=== PATIENT | female | born 1970 | race Caucasian/White ===

== ENCOUNTER 2024-05-24 11:44 | Outpatient (CLI) | payer MEDICAID, SELFPAY ==
[2024-05-24 10:28] LABS: Abs Immature Grans 0.01 10^3/uL (0.0-0.06); Absolute Basophil Count 0.03 10^3/uL (0.0-0.2); Absolute Eosinophil Count 0.04 10^3/uL (0.0-0.7); Absolute Lymphocyte Count 1.66 10^3/uL (1.2-3.4); Absolute Monocyte Count 0.34 10^3/uL (0.1-0.8); Absolute Neutrophil Count 3.38 10^3/uL (1.2-6.7); Basophils % 0.5 %; Eosinophils % 0.7 %; HCT 41.6 % (36.0-46.0); HGB 13.7 g/dL (11.2-15.7); Immature Grans % 0.2 %; Lymphocytes % 30.4 %; MCH 30.9 pg (27.0-33.0); MCHC 32.9 % (32.0-36.0); MCV 94 fL (80-95); MPV 9.9 fL (8.0-11.0); Monocytes % 6.2 %; Platelet Count 291 10^3/uL (130-400); RBC 4.43 10^6/uL (3.93-5.22); RDW 11.7 % (11.7-14.6); RDW-SD 40.7 fL; WBC 5.46 10^3/uL (4.4-10.8)
[2024-05-24 14:49] LABS: Hemoglobin A1C 5.1 % (<5.7)
[2024-05-24 15:10] LABS: ALT 29 U/L (14-59); AST 20 U/L (15-37); Albumin 4.4 g/dL (3.4-5.0); Alkaline Phosphatase 97 U/L (46-116); Anion Gap 8.8 mmol/L (3-11); BUN 9 mg/dL (7-18); Bilirubin, Total 0.52 mg/dL (0.2-1.0); CO2 27.2 mmol/L (21.0-32.0); CREATININE 0.7 mg/dL (0.55-1.02); Chloride 105 mmol/L (98-107); Estimated GFR 103.35 (mL/min/1.73m2); Glucose 91 mg/dL (74-106); Sodium 141 mmol/L (136-145); TSH 1.76 uIU/mL (0.36-3.74); Total Protein 7.4 g/dL (6.4-8.2)
[2024-05-24 15:11] LABS: C-Reactive Protein < 0.50 mg/dL (<or=0.5)
== END 2024-05-24 11:45 | disposition home or self-care (01) ==
LOC: LBO 11:50
PROVIDERS: Visit Provider Emergency Medicine
DX: R63.4 Abnormal weight loss (principal); E03.9 Hypothyroidism, unspecified; E11.9 Type 2 diabetes mellitus without complications
CPT/HCPCS: 36415; 80053; 83036; 84443; 85025; 86140

== ENCOUNTER 2024-06-08 08:49 | Day surgery (SDC) | payer MEDICAID, SELFPAY ==
--- NOTE | 2024-06-07 15:38 | W.PM.DSUDISC ---
Date of service: 06/08/24 Discharge Plan Disposition Patient Disposition: Home Condition: Good Discharge Details Reason For Visit: screening colonoscopy Attending Provider: Sathish Underwood Home Meds and New Rx's Prescriptions: Continued duloxetine 60 mg capsule,delayed release(DR/EC) 60 mg PO DAILY Qty: 90 3RF eletriptan [Relpax] 40 mg tablet 40 mg PO ONCE Qty: 30 1RF Discharge Instructions Instructions: Hemorrhoids Additional Instructions: Xiomara was very nice meeting you today, and I hope you are comfortable through the procedure. As we discussed before hand, you do have signs of internal hemorrhoids. This is congruent with what you described before the procedure. My basic approach to hemorrhoid management involves maintaining a diet that is rich in fiber to help promote soft bulky stools, which are easier for the rectum to manage, staying well-hydrated, and avoiding constipation. [id number] approaches can also be used to manage symptoms if they arise. Finally, there are operations to deal with internal and external hernias, but as they are relatively painful, I typically recommend that patients exhaust her nonoperative approaches before moving forward with any type of surgery. Otherwise, your colonoscopy was normal. I saw no signs of tumors or polyps. It is possible that the Cologuard test was triggered by hemorrhoid disease, but there is also a 13% false positive rate for Cologuard in general. That is, for every 100 patients with a positive test, 13 of them will have nothing wrong. In order to be safe, and with your family history, I recommend a 5-year interval for your next screening colonoscopy. 1. If tolerated, consume a soft, low fiber diet for 1-2 days. 2. Do not drive, drink alcohol, operate machinery, make critical decisions, or do activities that require coordination or balance for 24 hours. 3. Because air was put into your colon during the procedure, expelling air from your rectum (passing gas or farting) is normal. 4. You may not have a bowel movement for 1-3 days because of the colonoscopy prep. This is normal. 5. Go directly to the emergency room if you notice any of the following: Develop chills (warm to touch), or if you have a thermometer and your temperature is above 101 Difficulty breathing or difficultly swallowing Persistent vomiting Severe abdominal pain, other than gas cramps Severe chest pain Black, tarry stools Any bleeding ? exceeding one tablespoon 6. Call your physician if the site where your intravenous was started becomes red, swollen, painful, and warm to touch. 7. Your physician has reviewed your pre-procedure medications. Please continue to take those medications as previously ordered. You will be given specific information/education regarding any changes to your medications before leaving. Stand Alone Forms: Anesthesia Discharge InstOneil Chavez (DSU) Activity:: Activity as Tolerated Diet:: As Tolerated Discharge Orders Discharge Orders: Discharge Order (Routine); Ordered 06/07/24 Ordered By: Sathish Underwood DS: Diagnosis Discharge Diagnosis (1) Encounter for screening colonoscopy: Status: Acute Asessment and Plan: Negative screening colonoscopy; based on family history recommend 5-year interval for the next colonoscopy
--- NOTE | 2024-06-07 15:39 | W.COLOREPORT ---
Date of service: 06/08/24 Time of Service: 11:59 Colonoscopy Report Date of procedure: 06/08/24 Pre-op diagnosis general: screening colonoscopy Post-op diagnosis procedure note: other (Internal hemorrhoids; otherwise negative screening colonoscopy) Procedure: colonoscopy Surgeon: Sathish Underwood Anesthesia Type: General:No Airway Estimated blood loss (mL): 0 Pathology: none sent Complications: None Disposition: same day Indications: Xiomara is a 54 year old woman with a positive cologuard test who needs a follow up screening colonoscopy Prep: Miralax/Dulcolax Procedure Start Time: :22 Procedure End Time: 11:48 Retraction Time: 11 Findings: Internal hemorrhoids Procedure Description: After the induction of anesthesia, and with the patient in left lateral decubitus position, I began by performing an external anorectal exam.? Perineum and skin were normal, as was the anal verge.? There was no evidence of external hemorrhoids.? Next, I performed a digital rectal exam.? I did not appreciate any abnormal findings.? Next, I advanced a colonoscope into the rectal vault.? I performed retroflexion.? There are internal hemorrhoids.? Using insufflation, I then advanced the colonoscope beyond the rectal folds and into the sigmoid colon before advancing towards the cecum.? The quality of the prep was excellent.? The scope was noted to be in the cecum by identification of the ileocecal valve and appendiceal orifice.? I then began withdrawing the colonoscope using repeated irrigation as necessary for full evaluation of the colonic mucosa. ?Once the scope was withdrawn to the level of the rectum, great care was taken to examine portions of the rectal folds.? Finally, the scope was withdrawn and the patient was brought to the same-day surgery recovery unit as the anesthetic wore off. ?I saw no signs of tumors, polyps, or any other concerning pathology. The findings and instructions were shared with the patient prior to discharge. In light of the Cologuard result, with some family history of colorectal cancer, I do recommend a 5-year interval for the next screening. Juliaetta Bowel Prep Juliaetta Bowel Prep Right Colon: 3 Left Colon: 3 Transverse Colon: 3 Total Score: 9
[2024-06-08 09:27] VITALS: BP 119/82; PULSE 87; RESP 16; TEMP 36.7; O2SAT 98
--- NOTE | 2024-06-08 10:15 | W.ANESPRE ---
General Info Date of Service Date Performed: 06/08/24 Height: 5 ft 7 in Weight: 65.1 kg Body Mass Index (BMI): 22.4 Surgical Procedure: Operation Date: 06/08/24 10:35 Proposed Procedure Side Surgeon kayley Underwood MD Meds Allergies and Home Medications Allergies Allergy/AdvReac Type Severity Reaction Status Date / Time adhesive AdvReac Severe blisters Verified 06/08/24 09:18 Home Medication ?Medication ?Instructions ?Recorded duloxetine 60 mg capsule,delayed 60 mg PO DAILY #90 caps 05/24/24 release eletriptan 40 mg tablet (Relpax) 40 mg PO ONCE #30 tabs 05/24/24 Current Visit Medications: Current Medications Generic Name Dose Route Start Last Admin Trade Name Freq PRN Reason Stop Dose Admin Ringer's Solution 1,000 mls @ 80 mls/hr 06/08/24 06:00 IV 06/08/24 23:59 INFUSION RICCARDO IV Miscellaneous Supplies 1 each 06/08/24 06:00 Iv Access IV 06/08/24 23:59 DIRECTED RICCARDO Ondansetron HCl 4 mg 06/07/24 15:40 Ondansetron 4 Mg/2 Ml Vial IVP 07/07/24 15:39 Q4H PRN PRN Nausea / Vomiting Sodium Chloride 0 ml 06/08/24 06:00 Normal Saline Flush 10 Ml Syr IV 06/08/24 23:59 PRN PRN Sodium Chloride 0 ml 06/08/24 06:00 Normal Saline 10 Ml Vial IJ 06/08/24 23:59 DIRECTED PRN Sterile Water 0 ml 06/08/24 06:00 Water,Injection,Sterile 10 Ml Vial IJ 06/08/24 23:59 DIRECTED PRN PFSH Active Problems Active Problems: Problem Status Onset Code Encounter for screening colonoscopy Acute Z12.11 Weight loss, abnormal Acute R63.4 Medical History Medical History Migraine Anxiety Surgical History Surgical History Hx of section Tobacco Smoking/Tobacco Use Status: Former Tobacco Use Alcohol Alcohol Intake: current Alcohol intake frequency: a few times a week Substance Use Substance use: Never Substance use type: does not use Vital Signs and Lab Results Vital Signs Most Recent Vital Signs in EMR: Most Recent Vital Signs Temp Pulse Resp BP Pulse Ox 36.7 C 87 16 119/82 98 06/08/24 09:27 06/08/24 09:27 06/08/24 09:27 06/08/24 09:27 06/08/24 09:27 Lab Results Blood Type / Crossmatch: No Data to Display Complete Blood Count: White Blood Count 5.46 10^3/uL (4.4-10.8) 05/24/24 10:23 Red Blood Count 4.43 10^6/uL (3.93-5.22) 05/24/24 10:23 Hemoglobin 13.7 g/dL (11.2-15.7) 05/24/24 10:23 Hematocrit 41.6 % (36.0-46.0) 05/24/24 10:23 Platelet Count 291 10^3/uL (130-400) 05/24/24 10:23 Complete Metabolic Panel: Sodium 141 mmol/L (136-145) 05/24/24 10:23 Potassium 4.0 mmol/L (3.5-5.1) 05/24/24 10:23 Chloride 105 mmol/L (98-107) 05/24/24 10:23 Carbon Dioxide 27.2 mmol/L (21.0-32.0) 05/24/24 10:23 BUN 9 mg/dL (7-18) 05/24/24 10:23 Creatinine 0.7 mg/dL (0.55-1.02) 05/24/24 10:23 Est GFR (CKD-EPI 2020) 103.35 (mL/min/1.73m2) 05/24/24 10:23 Calcium 10.0 mg/dL (8.5-10.1) 05/24/24 10:23 Albumin 4.4 g/dL (3.4-5.0) 05/24/24 10:23 Glucose 91 mg/dL (74-106) 05/24/24 10:23 Hemoglobin A1c 5.1 % (<5.7) 05/24/24 10:23 C-Reactive Protein < 0.50 mg/dL (<or=0.5) 05/24/24 10:23 Liver Function Panel: Alanine Aminotransferase (ALT/SGPT) 29 U/L (14-59) 05/24/24 10:23 Aspartate Amino Transf (AST/SGOT) 20 U/L (15-37) 05/24/24 10:23 Coagulation Panel: No Data to Display Cardiac Panel: No Data to Display Arterial Blood Gas: No Data to Display Venous Blood Gas: No Data to Display Pancreas Panel: No Data to Display Thyroid Panel: Thyroid Stimulating Hormone (TSH) 1.76 uIU/mL (0.36-3.74) 05/24/24 10:23 Infectious Disease: No Data to Display Blood Cultures: No Data to Display Toxicology Panel: No Data to Display Panel: No Data to Display Anesthesia Assessment and Plan Anesthesia History Personal History: No History of Anesthesia Complications Family History: No Family History of Anesthesia Complications Exercise Tolerance Exercise Tolerance: Metabolic Equivalents>4 Pertinent Negatives Pertinent Negatives: No Symptoms of GERD Cardiac & Pulmonary Exam Cardiac Exam: Normal S1/S2 Heart Sounds Pulmonary Exam: Clear Bilateral Breath Sounds Implantable Cardiac Device Does patient have a Pacemaker or an ICD?: No Airway Exam Known Difficult Airway: No Mallampati Class: 2 Mouth Opening: Normal (> 3cm) Thyromental Distance: Greater than 3 cm Neck Range of Motion: Full ROM Neck Circumference: Normal Teeth Condition: Normal Dentition ASA Classification ASA Score: ASA 2 Emergency Case?: No NPO Status NPO Status: NPO Clears >2 hours, Solids >8 hours Status Status: Not Relevant due to Medical History Anesthesia Plan Resuscitation Status: Full Code Anesthesia Technique: General Anesthesia Airway Planned: Natural Airway Monitors Used: Standard Monitors
[2024-06-08] MEDS: Lactated Ringers 1,000 ML 80 ML IV (10:18)
[2024-06-08 10:45] VITALS: BMI 22.4
[2024-06-08 11:50] VITALS: BP 94/60; PULSE 86; RESP 16; TEMP 36.2; O2SAT 100
--- NOTE | 2024-06-08 12:10 | W.ANESPOSTOP ---
Postoperative Evaluation Date, Time and Location Date Performed: 06/08/24 Time Performed: 12:10 Patient Location: Day Surgery Unit Vital Signs Most Recent Imported Vital Signs: Most Recent Vital Signs Temp Pulse Resp BP Pulse Ox 36.2 C L 86 16 94/60 L 100 06/08/24 11:50 06/08/24 11:50 06/08/24 11:50 06/08/24 11:50 06/08/24 11:50 Pain Score Most Recent Pain Score: Most Recent Pain Score Pain Level 0 06/08/24 11:50 Assessment Mental Status: Awake (Alert & Oriented to Patient Baseline) Airway and Respiratory Function: Patent airway with normal (patient baseline) respiratory exam Cardiovascular Function: Hemodynamically Stable Hydration Status: Adequately Hydrated Nausea & Vomiting: No Nausea or Vomiting Pain: Pt. Denies Any Pain Peripheral Nerve Block: Patient did not receive a nerve block
[2024-06-08 12:20] VITALS: BP 112/72; PULSE 64; RESP 16; TEMP 36.5; O2SAT 100
== END 2024-06-08 12:23 | disposition home or self-care (01) ==
LOC: SUR 08:50
PROVIDERS: Visit Provider Surgery
PROC: 0DJD8ZZ Inspection of Lower Intestinal Tract, Via Natural or Artificial Opening Endoscopic (ICD-10-PCS; CPT 45378; principal; 2024-06-08 10:30)
DX: Z12.11 Encounter for screening for malignant neoplasm of colon (principal); K64.8 Other hemorrhoids; Z80.8 Family history of malignant neoplasm of other organs or systems
CPT/HCPCS: 45378; J2704

== ENCOUNTER 2024-07-22 18:41 | Emergency (ER) | payer MEDICAID, SELFPAY ==
[2024-07-22] VITALS (7 sets, daily range): BP systolic 120–137; BP diastolic 65–83; PULSE 57–78; RESP 18–25; TEMP 37.2; O2SAT 98–100
--- NOTE | 2024-07-22 18:45 | RT.EKG_ITS ---
APPROVED REPORT Exam: Resting ECG Reason for Exam: Abd Pain over 45 Patient Location: E HR:70 bpm ECG Measurements Heart Rate 70 AXIS SC 113 P 22 QRSd 86 QRS 58 QT 398 T 56 QTc 431 Conclusion Sinus rhythm...normal P axis, V-rate 60- 99 Low voltage, precordial leads...precordial leads <1.0mV appropriate intervals no ST segment or T wave abnormalities to suggest occlusive DC
--- NOTE | 2024-07-22 19:15 | DI.CT_ITS ---
Exam(s) CT ABDOMEN PELVIS W EXAM: CT ABDOMEN PELVIS W CLINICAL HISTORY: epigastric pain TECHNIQUE: Imaging Protocol: Axial computed tomography images with coronal and sagittal reformatted images were created and reviewed. CONTRAST MATERIAL: Intravenous: Omnipaque 350 Contrast volume:75 mL Oral: yes / no COMPARISON: No exams were available for comparison FINDINGS: ABDOMEN: Lung Bases: The inferior aspects of the patient's bilateral breast implants are visualized. Liver: Normal density. There are few tiny round well-circumscribed hypodensities in the liver. These likely reflect small cysts. No suspicious hepatic masses are seen. Portal, Superior Mesenteric, and Splenic Veins: Unremarkable. Gallbladder and Biliary Tract: No gallstones are present. The gallbladder is mildly distended. Ther e is a question of mild pericholecystic fluid. No biliary ductal dilatation is present. Pancreas: Normal density, no abnormal calcifications or inflammatory process. Spleen: Normal. Adrenals: No masses seen. Kidneys: Normal size, contour and axis. No radiodense stones or obstructive uropathy. No masses seen. Abdominal Aorta: Abdominal portion non-dilated. Minimal atherosclerotic calcification is present. Bowel: No obstruction or bowel wall thickening. Incidental note is made of a duodenal diverticulum ad jacent to the head of the pancreas. There is stool seen throughout the colon which may reflect const ipation. There is no evidence of appendicitis. Peritoneal Cavity: No ascites, collection or mesenteric inflammatory response. No free air. Lymph Nodes: Within normal limits. Bones: Within normal limits for the patient's age. Soft Tissues: There is a small fat containing umbilical hernia. PELVIS: Bladder: The urinary bladder is incompletely distended but grossly unremarkable. Reproductive Organs: There is a small 1 cm fibroid in the fundus of the uterus. Lymph Nodes: Within normal limits. Bones: Within normal limits for the patient's age. IMPRESSION: 1. Mild distention of the gallbladder with a question of mild pericholecystic fluid which can be seen with cholecystitis. Please correlate clinically. Gallbladder ultrasound may be obtained for furthe r evaluation. No CT evidence of stones or biliary ductal dilatation. 2. Stool seen throughout the colon suggesting constipation. 3. The [facility] preliminary report was reviewed. RADIATION DOSE DELIVERED: 390.5mGy.cm Total DLP DATA REPOSITORY: All CT scans at this facility are submitted to the National Radiology Data Registry (NRDR) Dose Index Registry (DIR) with the [employer] ([employer]). RADIATION OPTIMIZATION: All CT scans at this facility use at least one of these dose optimization te chniques: automated exposure control; mA and/or kV adjustment per patient size (includes targeted exa ms where dose is matched to clinical indication); or iterative reconstruction.
[2024-07-22 19:34] LABS: Abs Immature Grans 0.02 10^3/uL (0.0-0.06); Absolute Basophil Count 0.02 10^3/uL (0.0-0.2); Absolute Eosinophil Count 0.03 10^3/uL (0.0-0.7); Absolute Lymphocyte Count 2.22 10^3/uL (1.2-3.4); Absolute Monocyte Count 0.38 10^3/uL (0.1-0.8); Absolute Neutrophil Count 4.02 10^3/uL (1.2-6.7); Basophils % 0.3 %; Eosinophils % 0.4 %; HCT 37.6 % (36.0-46.0); HGB 12.2 g/dL (11.2-15.7); Immature Grans % 0.3 %; Lymphocytes % 33.2 %; MCH 30.6 pg (27.0-33.0); MCHC 32.4 % (32.0-36.0); MCV 94 fL (80-95); MPV 10.5 fL (8.0-11.0); Monocytes % 5.7 %; Neutrophils % 60.1 %; Platelet Count 263 10^3/uL (130-400); RBC 3.99 10^6/uL (3.93-5.22); RDW 12.2 % (11.7-14.6); RDW-SD 42.8 fL; WBC 6.69 10^3/uL (4.4-10.8)
[2024-07-22] MEDS: Omnipaque 350 MG/ML 100 ML BTL IJ (19:35)
[2024-07-22] MEDS: Normal Saline - Diluent 50 ML VIAL IJ (19:36)
[2024-07-22] MEDS: Normal Saline Flush 10 ML SYR IVP (19:37)
[2024-07-22 19:46] LABS: Bilirubin Negative (Negative); Blood Negative (Negative); Clarity Sl Cloudy (Clear); Glucose Negative (Negative); Ketones Negative (Negative); Leukocyte Esterase Negative (Negative); Nitrite Negative (Negative); Specific Gravity 1.025 (1.005-1.025); pH 7.5 (5-8)
[2024-07-22 19:51] LABS: ALT 22 U/L (14-59); AST 18 U/L (15-37); Albumin 3.9 g/dL (3.4-5.0); Alkaline Phosphatase 95 U/L (46-116); Anion Gap 7.9 mmol/L (3-11); BUN 8 mg/dL (7-18); Bilirubin, Total 0.3 mg/dL (0.2-1.0); CO2 28.1 mmol/L (21.0-32.0); CREATININE 0.8 mg/dL (0.55-1.02); Calcium 9.7 mg/dL (8.5-10.1); Chloride 105 mmol/L (98-107); Estimated GFR 88.05 (mL/min/1.73m2); Glucose 124 mg/dL (74-106); Lipase 42 U/L (<78); Potassium 3.5 mmol/L (3.5-5.1); Sodium 141 mmol/L (136-145); Troponin I 5 ng/L (<or=51)
[2024-07-22 20:52] LABS: Troponin I 5 ng/L (<or=51)
--- NOTE | 2024-07-22 20:55 | DI.VRAD_ITS ---
PROCEDURE INFORMATION: Exam: CT Abdomen And Pelvis With Contrast Exam date and time: 07/22/2024 8:08 PM Age: 54 years old Clinical indication: Abdominal pain; Epigastric pain TECHNIQUE: Imaging protocol: Computed tomography of the abdomen and pelvis with contrast. COMPARISON: No relevant prior studies available. FINDINGS: Lungs: 3 mm right lower lobe pulmonary nodule, image 4 of series 9. Liver: Small indeterminate hypoattenuating hepatic lesions, incompletely characterized but most likely small cysts and/or hemangiomas. Gallbladder and biliary ducts: Prominent gallbladder distention. Suggestion of gallbladder wall thickening versus fluid between the gallbladder and liver. No calcified gallstones. No biliary dilatation. Pancreas: Normal appearing pancreas. Spleen: Normal appearing spleen. Adrenal glands: Normal appearing adrenal glands. Kidneys and ureters: Normal appearing kidneys. No hydronephrosis. No obstructing ureteral stones. Stomach and bowel: No oral contrast. Stomach partially decompressed. No small bowel dilatation to suggest obstruction. Normal-appearing fecal material throughout the colon and rectum. No evidence of diverticulitis or colitis. Appendix: Normal appendix. Intraperitoneal space: No gross ascites or free air. Vasculature: Normal caliber abdominal aorta. Lymph nodes: No pathologically enlarged mesenteric, retroperitoneal, or pelvic sidewall lymph nodes. Urinary bladder: Urinary bladder partially collapsed but grossly unremarkable, as seen. Reproductive: Uterus and ovaries partially obscured but grossly normal in size. Bones/joints: No acute fracture seen among the bones of the abdomen or pelvis. Soft tissues: Bilateral mammoplasty prostheses partially visualized. Tiny fat-containing ventral hernia at the umbilicus, doubtful clinical significance. IMPRESSION: 1. Prominent gallbladder distention. Suggestion of gallbladder wall thickening versus fluid between the gallbladder and liver. Clinical correlation is recommended to assess the possibility of acute cholecystitis. No calcified gallstones. No biliary dilatation. 2. No acute bowel pathology demonstrated. Normal-appearing fecal material throughout the colon and rectum. Dictated and Authenticated by: Paul Vences MD. Orderin Jase Rosales MD
--- NOTE | 2024-07-22 22:06 | NUR.NOTE ---
Faxed Outpt [facility] Diagnostic Imaging Req and patient was giving a copy of it to call them to schedule appt.
--- NOTE | 2024-07-22 23:19 | ED.GENADUL_ITS ---
Discharge Plan Disposition Patient Disposition: Home Condition: Stable Discharge Details Clinical Impression: Biliary pain Primary Care Provider: Unknown,Unknown ED Provider: Connie Laguna Home Meds and New Rx's Prescriptions: Continued duloxetine 60 mg capsule,delayed release(DR/EC) 60 mg PO DAILY Qty: 90 3RF eletriptan [Relpax] 40 mg tablet 40 mg PO ONCE Qty: 30 1RF multivitamin Tablet 1 tab PO DAILY Discharge Instructions Instructions: Gallbladder Diet Additional Instructions: Please follow-up for ultrasound tomorrow, stay away from fatty food, acidic food, spicy food May take ibuprofen and Tylenol as needed for pain, should you develop worsening pain fever or chills, please return immediately for reassessment, follow-up with surgery in the outpatient setting Referrals: John Sanchez MD [ [facility] STAFF PHYSICIAN] - 1 day HPI General Date/Time Provider Initiated Documentation: 07/22/24 19:06 . HPI Narrative: The patient is a 54-year-old female with epigastric pain radiating to her back, starting after an argument with her . No nausea, vomiting, fever, chills, or history of similar symptoms. No chance of . Related Data Home Medications ?Medication ?Instructions ?Recorded ?Confirmed duloxetine 60 mg capsule,delayed 60 mg PO DAILY #90 caps 05/24/24 07/22/24 release eletriptan 40 mg tablet (Relpax) 40 mg PO ONCE #30 tabs 05/24/24 07/22/24 multivitamin 1 tab PO DAILY 07/06/24 07/22/24 Previous Rx's ?Medication ?Instructions ?Recorded duloxetine 60 mg capsule,delayed 60 mg PO DAILY #90 caps 05/24/24 release eletriptan 40 mg tablet (Relpax) 40 mg PO ONCE #30 tabs 05/24/24 Allergies Allergy/AdvReac Type Severity Reaction Status Date / Time adhesive AdvReac Severe blisters Verified 07/22/24 19:02 General Stated Complaint: Abd Prob JESSICA: 3 Exam Narrative Exam Narrative: General Appearance: Normal. Vital signs: Within normal limits. HEENT: Within normal limits. Respiratory: Within normal limits. Gastrointestinal: No rebound or guarding in the gastrointestinal area. Skin: Warm and dry, no rash. Neurological: Normal. Course Vital Signs Vital signs: Vital Signs Temperature 37.2 C 07/22/24 18:47 Pulse 74 07/22/24 18:47 Respiratory Rate 18 07/22/24 18:47 Blood Pressure 120/65 07/22/24 18:47 Pulse Oximetry 98 07/22/24 18:47 Temperature 37.2 C 07/22/24 19:17 Temperature Source Oral 07/22/24 18:47 Pulse 72 07/22/24 21:57 Respiratory Rate 18 07/22/24 21:57 Blood Pressure 137/78 07/22/24 21:57 Blood Pressure Mean 95 07/22/24 21:57 Blood Pressure Position Supine 07/22/24 18:47 Pulse Oximetry 100 07/22/24 21:57 Oxygen Delivery Method Room Air 07/22/24 19:17 Oxygen Flow Rate 0 07/22/24 18:47 Pain Level 0 07/22/24 22:08 Lab/Test Results Lab/Test Results: Laboratory Tests Range/Units 07/22/24 07/22/24 07/22/24 18:57 19:33 20:30 WBC (4.4-10.8) 10^3/uL 6.69 RBC (3.93-5.22) 10^6/uL 3.99 Hgb (11.2-15.7) g/dL 12.2 Hct (36.0-46.0) % 37.6 MCV (80-95) fL 94 MCH (27.0-33.0) pg 30.6 MCHC (32.0-36.0) % 32.4 RDW (11.7-14.6) % 12.2 Plt Count (130-400) 10^3/uL 263 MPV (8.0-11.0) fL 10.5 Immature Gran % % 0.3 Neutrophils % % 60.1 Lymphocytes % % 33.2 Monocytes % % 5.7 Eosinophils % % 0.4 Basophils % % 0.3 Nucleated RBC % (0.0-0.3) % 0.0 Absolute Neutrophils (1.2-6.7) 10^3/uL 4.02 Absolute Lymphocytes (1.2-3.4) 10^3/uL 2.22 Absolute Monocytes (0.1-0.8) 10^3/uL 0.38 Absolute Eosinophils (0.0-0.7) 10^3/uL 0.03 Absolute Basophils (0.0-0.2) 10^3/uL 0.02 Sodium (136-145) mmol/L 141 Potassium (3.5-5.1) mmol/L 3.5 Chloride (98-107) mmol/L 105 Carbon Dioxide (21.0-32.0) mmol/L 28.1 Anion Gap (3-11) mmol/L 7.9 BUN (7-18) mg/dL 8 Creatinine (0.55-1.02) mg/dL 0.8 Est GFR (CKD-EPI 2020) (mL/min/1.73m2) 88.05 Glucose (74-106) mg/dL 124 H Calcium (8.5-10.1) mg/dL 9.7 Total Bilirubin (0.2-1.0) mg/dL 0.3 AST (15-37) U/L 18 ALT (14-59) U/L 22 Alkaline Phosphatase (46-116) U/L 95 Troponin I (<or=51) ng/L 5 5 Total Protein (6.4-8.2) g/dL 7.0 Albumin (3.4-5.0) g/dL 3.9 Lipase (<78) U/L 42 Urine Color (Yellow) Yellow Urine Clarity (Clear) Sl Cloudy Urine pH (5-8) 7.5 Ur Specific [place] (1.005-1.025) 1.025 Urine Protein (Neg-Trace) mg/dL Negative Urine Ketones (Negative) mg/dL Negative Urine Blood (Negative) Negative Urine Nitrite (Negative) Negative Urine Bilirubin (Negative) Negative Urine Urobilinogen (Up to 0.2) mg/dL 1.0 H Ur Leukocyte Esterase (Negative) Negative Urine Glucose (Negative) mg/dL Negative Range/Units 07/22/24 22:19 WBC (4.4-10.8) 10^3/uL RBC (3.93-5.22) 10^6/uL Hgb (11.2-15.7) g/dL Hct (36.0-46.0) % MCV (80-95) fL MCH (27.0-33.0) pg MCHC (32.0-36.0) % RDW (11.7-14.6) % Plt Count (130-400) 10^3/uL MPV (8.0-11.0) fL Immature Gran % % Neutrophils % % Lymphocytes % % Monocytes % % Eosinophils % % Basophils % % Nucleated RBC % (0.0-0.3) % Absolute Neutrophils (1.2-6.7) 10^3/uL Absolute Lymphocytes (1.2-3.4) 10^3/uL Absolute Monocytes (0.1-0.8) 10^3/uL Absolute Eosinophils (0.0-0.7) 10^3/uL Absolute Basophils (0.0-0.2) 10^3/uL Sodium (136-145) mmol/L Potassium (3.5-5.1) mmol/L Chloride (98-107) mmol/L Carbon Dioxide (21.0-32.0) mmol/L Anion Gap (3-11) mmol/L BUN (7-18) mg/dL Creatinine (0.55-1.02) mg/dL Est GFR (CKD-EPI 2020) (mL/min/1.73m2) Glucose (74-106) mg/dL Calcium (8.5-10.1) mg/dL Total Bilirubin (0.2-1.0) mg/dL AST (15-37) U/L ALT (14-59) U/L Alkaline Phosphatase (46-116) U/L Troponin I (<or=51) ng/L Cancelled Total Protein (6.4-8.2) g/dL Albumin (3.4-5.0) g/dL Lipase (<78) U/L Urine Color (Yellow) Urine Clarity (Clear) Urine pH (5-8) Ur Specific [place] (1.005-1.025) Urine Protein (Neg-Trace) mg/dL Urine Ketones (Negative) mg/dL Urine Blood (Negative) Urine Nitrite (Negative) Urine Bilirubin (Negative) Urine Urobilinogen (Up to 0.2) mg/dL Ur Leukocyte Esterase (Negative) Urine Glucose (Negative) mg/dL POC- Test(urine) Negative Medical Decision Making CBC and chemistry normal. Lipase levels normal. CT scan showed gallbladder distention. Initial Assessment: 55-year-old female with epigastric pain radiating to the back, pressure-like sensation, no nausea, vomiting, fever, chills, or history of similar symptoms. Pain resolved during visit. ED Course: - CT scan showed gallbladder distention. - No leukocytosis or acute abnormalities in CBC, chemistry, or lipase levels. - Pain resolved during visit. - Outpatient ultrasound scheduled for tomorrow. - Referral to surgeon made. - Return precautions reviewed and understood. Final Assessment: Patient's epigastric pain resolved during the visit. CT scan showed gallbladder distention without leukocytosis or acute abnormalities in CBC, chemistry, or lipase levels. Stable for discharge. Clinical Impression: - Epigastric pain Disposition: - Discharge: Stable for discharge home. - Follow-Up: Outpatient ultrasound scheduled for tomorrow. Referral to surgeon made. MDM Components Evaluation: - Number of Differential Diagnoses or Management Options: Epigastric pain - Amount and Complexity of Data Reviewed: CT scan, CBC, chemistry, lipase levels - Risk of Complication and Morbidity or Mortality: Low risk based on resolved pain and stable condition. Initial Assessment: 55-year-old female with epigastric pain radiating to the back, pressure-like sensation, no nausea, vomiting, fever, chills, or history of similar symptoms. Pain resolved during visit. ED Course: - CT scan showed gallbladder distention. - No leukocytosis or acute abnormalities in CBC, chemistry, or lipase levels. - Pain resolved during visit. - Outpatient ultrasound scheduled for tomorrow. - Referral to surgeon made. - Return precautions reviewed and understood. Final Assessment: Patient's epigastric pain resolved during the visit. CT scan showed gallbladder distention without leukocytosis or acute abnormalities in CBC, chemistry, or lipase levels. Stable for discharge. Clinical Impression: - Epigastric pain Disposition: - Discharge: Stable for discharge home. - Follow-Up: Outpatient ultrasound scheduled for tomorrow. Referral to surgeon made. MDM Components Evaluation: - Number of Differential Diagnoses or Management Options: Epigastric pain - Amount and Complexity of Data Reviewed: CT scan, CBC, chemistry, lipase levels - Risk of Complication and Morbidity or Mortality: Low risk based on resolved pain and stable condition. Quality:SDOH Health Related Social Needs: No Data to Display PFSH All Active Problems (Updated 07/22/24 @ 21:47 by ANA Upton) Biliary pain (Acute) Medical History (Updated 07/22/24 @ 21:47 by ANA Upton) Weight loss, abnormal Migraine Anxiety Surgical History (Updated 06/12/24 @ 14:14 by Nicky Blackwell) History of colonoscopy (~06/2024) Hx of section Family History (Updated 06/29/24 @ 10:05 by Mariah Will) Mother Diabetes Hypertension Brother Hypertension Maternal Grandmother Breast cancer Social History (Updated 06/29/24 @ 09:43 by Mariah Will) Smoking/Tobacco Use Status: Former Tobacco Use Quit Date: 04/04/20 Tobacco: How many years used: 5 Smoking risk assessment performed?: Yes Alcohol Intake: current Alcohol Intake frequency: a few times a week Drug use: Rarely Substance use type: does not use and marijuana Adopted: No Caregiver/Support person: No Foster care: No Household members: significant other Housing: house Number of Children: 1 number of grandchildren: 0 Communication Needs: None Education Level: college Do you need help understanding health information?: Never current occupation: none Pets and animals: Yes (7) Pets and animals: cat(s) and dog(s) Sexually active: Yes Do you think of yourself as: straight/heterosexual Current gender identity: female What is your relationship status?: living with partner How often do you talk on the phone with friends or family?: once per week How often do you get together with friends or relatives?: twice per week Do you belong to any clubs or organized social groups?: no Panel score (0-1 are the most socially isolated patients): 2 Duration: < 15 minutes/day Frequency: 1-2 times per week Aida/Jewish: Catholic Special aida needs: No Seatbelt use: always Helmet use: Yes 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
== END 2024-07-22 22:21 | disposition home or self-care (01) ==
PROVIDERS: Emergency Provider Physician Assistant
DX: K81.0 Acute cholecystitis (principal); K80.50 Calculus of bile duct without cholangitis or cholecystitis without obstruction
CPT/HCPCS: 36415; 80053; 81025; 83690; 93005; 99285; 74177; 81003; 84484; 85025; 93010; 99284; J3490

== ENCOUNTER 2024-07-23 10:16 | Outpatient (CLI) | payer MEDICAID, SELFPAY ==
--- NOTE | 2024-07-23 | DI.US_ITS ---
Exam(s) US ABDOMEN LIMITED EXAM: US ABDOMEN LIMITED CLINICAL HISTORY: DISTENDED GB ON CT TECHNIQUE: Ultrasound abdomen performed using standard protocol. COMPARISON: CT CT ABDOMEN PELVIS W from 07/22/2024 FINDINGS: PANCREAS: Normal where visualized. LIVER: Normal. Hepatopetal flow in the Portal Vein. The liver measures in 13.7 cm length. No evidence of a hepatic mass. There are few small simple cysts in the liver. No follow-up is recommended. GALLBLADDER:Mobile gallstones. There does appear to be a immobile gallstone in the neck of the gallb ladder. Gallbladder wall measures up to 5 mm. Small amount of pericholecystic fluid. BILIARY SYSTEM: Common bile duct measures < 7 mm. No intrahepatic biliary ductal dilation. HILARIO'S SIGN: Negative. RIGHT KIDNEY: Kidney is normal in size. No evidence of renal calculi. No evidence of hydronephrosis. No renal mass or cyst identified. ASCITES: None seen. IMPRESSION: Cholelithiasis including an immobile gallstone in the neck of the gallbladder. Gallbladder wall thic kening and a small amount of pericholecystic fluid. Acute cholecystitis should be considered. DATA REPOSITORY:
== END 2024-07-23 10:36 ==
LOC: DI 10:17
PROVIDERS: Visit Provider Physician Assistant
DX: K80.80 Other cholelithiasis without obstruction (principal)
CPT/HCPCS: 76705

== ENCOUNTER 2024-07-23 13:05 | Emergency (ER) | payer MEDICAID, SELFPAY ==
[2024-07-23 13:19] VITALS: BP 132/73; PULSE 72; RESP 18; TEMP 36.8; O2SAT 99
--- NOTE | 2024-07-23 13:30 | ED.GENADUL_ITS ---
Discharge Plan Disposition Patient Disposition: Home Condition: Stable Discharge Details Clinical Impression: Acute cholecystitis Primary Care Provider: Roxana Waggoner ED Provider: Vania Gordon Home Meds and New Rx's Prescriptions: No Action duloxetine 60 mg capsule,delayed release(DR/EC) 60 mg PO DAILY Qty: 90 3RF eletriptan [Relpax] 40 mg tablet 40 mg PO ONCE Qty: 30 1RF multivitamin Tablet 1 tab PO DAILY Discharge Instructions Instructions: Gallbladder Diet, Gallstones ED Additional Instructions: The ultrasound shows concern for acute cholecystitis. This usually requires surgery. I did speak with the surgeon on-call Dr. Babb. As long as you are maintaining oral intake without difficulty no fever no vomiting follow-up with outpatient surgery in the next 24 to 48 hours is reasonable. Please call the surgeons office today or tomorrow to discuss close follow-up. Stay away from anything fried or fatty. Practice a bland diet and clear liquids. Return to the ER for any worsening pain, vomiting fever or concerns. Please take Tylenol or Ibuprofen with food every 4-6 hours as needed for pain and swelling. Referrals: Luis Babb MD [ [facility] STAFF PHYSICIAN] - 2 days HPI General Date/Time Provider Initiated Documentation: 07/23/24 13:30 . Limitations to Documentation: no limitations . Information obtained by: patient, RN notes reviewed and old records reviewed . HPI Narrative: 54-year-old female presents to the ER for ultrasound results. Patient was seen here in the ER yesterday had CT imaging and labs and an outpatient ultrasound ordered. CT showed distended gallbladder at that time. Patient reports since the initial began of abdominal pain she has had a little bit of pain but no significant increase in her symptoms no vomiting no fever or any further concerning symptoms. She presents with her family is alert and oriented x 3. Has a past medical history of migraine anxiety. Related Data Home Medications ?Medication ?Instructions ?Recorded ?Confirmed duloxetine 60 mg capsule,delayed 60 mg PO DAILY #90 caps 05/24/24 07/23/24 release eletriptan 40 mg tablet (Relpax) 40 mg PO ONCE #30 tabs 05/24/24 07/23/24 multivitamin 1 tab PO DAILY 07/06/24 07/23/24 Previous Rx's ?Medication ?Instructions ?Recorded duloxetine 60 mg capsule,delayed 60 mg PO DAILY #90 caps 05/24/24 release eletriptan 40 mg tablet (Relpax) 40 mg PO ONCE #30 tabs 05/24/24 Allergies Allergy/AdvReac Type Severity Reaction Status Date / Time adhesive AdvReac Severe blisters Verified 07/23/24 13:21 General Stated Complaint: Recheck JESSICA: 5 Review of Systems All systems reviewed & are unremarkable except as noted in HPI and below Gastrointestinal Gastrointestinal: Reports abdominal pain Exam Narrative Exam Narrative: Constitutional: Alert and oriented x3. Appears stated age. Normal body habitus. Head: Normocephalic, no trauma. Eyes: Pupils PERRL, EOM's intact. Eyelids symmetrical without lesions, discharge, or swelling. Chest: RRR, Normal S1, S2, distal pulses intact. Resp: Lungs clear to auscultation bilaterally, no wheezes, rales, or rhonchi. Abdomen: Soft, non-distended, Normoactive bowel sounds all 4 quads. Musculoskeletal: Normal gait, Moves all 4 extremities without difficulty. Skin: No suspicious rashes or lesions. Capillary refill less than 2 sec. Course Vital Signs Vital signs: Vital Signs Temperature 36.8 C 07/23/24 13:19 Pulse 72 07/23/24 13:19 Respiratory Rate 18 07/23/24 13:19 Blood Pressure 132/73 07/23/24 13:19 Pulse Oximetry 99 07/23/24 13:19 Temperature 36.8 C 07/23/24 13:19 Temperature Source Oral 07/23/24 13:19 Pulse 72 07/23/24 13:19 Respiratory Rate 18 07/23/24 13:19 Blood Pressure 132/73 07/23/24 13:19 Blood Pressure Position Sitting 07/23/24 13:19 Pulse Oximetry 99 07/23/24 13:19 Oxygen Delivery Method Room Air 07/23/24 13:19 Oxygen Flow Rate 0 07/23/24 13:19 Pain Level 0 07/23/24 13:19 Medical Decision Making Patient presents to the ER after having a ultrasound of her gallbladder from her visit here yesterday. Patient had a CT abdomen pelvis which showed gallbladder distention. She did have negative labs on her workup no increase in bilirubin lipase or white blood cell count. Ultrasound is concerning for possible acute cholecystitis. After speaking with patient she reports she still has a little bit of right upper quadrant abdominal pain but denies any vomiting or severe pain like what brought her to the emergency department. I will go ahead and page the on-call surgeon regarding the ultrasound results to get further recommendations whether this needs to be treated urgently or can go ahead with the outpatient follow-up. 1410: Spoke with the surgeon on-call Dr. Babb regarding the ultrasound results and patient case in details. He verbalized understanding. He recommends that as long as patient is able to tolerate liquids and is not overly concerned about her pain that follow-up in approximately 48 hours should be reasonable. Will discuss low-fat diet and strict return instructions or follow-up care. Discussed options and plan of care with patient and family who verbalized understanding. They would rather go home and follow-up with surgery as an outpatient I did discuss at length the dietary restrictions with them. Will give surgery referral information and have them call today or tomorrow. This text was generated using [employer] system, please disregard any oddities of phrase or misspellings. Medical Records Medical records reviewed: Yes I reviewed the patient's medical records. Imaging Data Radiologic Study: Imaging: Ultrasound Radiologist's impression: EXAM: US ABDOMEN LIMITED CLINICAL HISTORY: DISTENDED GB ON CT TECHNIQUE: Ultrasound abdomen performed using standard protocol. COMPARISON: CT CT ABDOMEN PELVIS W from 07/22/2024 FINDINGS: PANCREAS: Normal where visualized. LIVER: Normal. Hepatopetal flow in the Portal Vein. The liver measures in 13.7 cm length. No evidence of a hepatic mass. There are few small simple cysts in the liver. No follow-up is recommended. GALLBLADDER:Mobile gallstones. There does appear to be a immobile gallstone in the neck of the gallbladder. Gallbladder wall measures up to 5 mm. Small amount of pericholecystic fluid. BILIARY SYSTEM: Common bile duct measures < 7 mm. No intrahepatic biliary ductal dilation. HILARIO'S SIGN: Negative. RIGHT KIDNEY: Kidney is normal in size. No evidence of renal calculi. No evidence of hydronephrosis. No renal mass or cyst identified. ASCITES: None seen. IMPRESSION: Cholelithiasis including an immobile gallstone in the neck of the gallbladder. Gallbladder wall thickening and a small amount of pericholecystic fluid. Acute cholecystitis should be considered. Lab Data Lab results reviewed: Yes I reviewed the patient's lab results. Quality:SDOH Health Related Social Needs: No Data to Display PFSH All Active Problems (Updated 07/23/24 @ 14:17 by Vania Gordon NP) Acute cholecystitis (Acute) Biliary pain (Acute) Medical History (Updated 07/23/24 @ 14:17 by Vania Gordon NP) Weight loss, abnormal Migraine Anxiety Surgical History (Updated 06/12/24 @ 14:14 by Nicky Blackwell) History of colonoscopy (~06/2024) Hx of section Family History (Updated 06/29/24 @ 10:05 by Mariah Will) Mother Diabetes Hypertension Brother Hypertension Maternal Grandmother Breast cancer Social History (Updated 06/29/24 @ 09:43 by Mariah Will) Smoking/Tobacco Use Status: Former Tobacco Use Quit Date: 04/04/20 Tobacco: How many years used: 5 Smoking risk assessment performed?: Yes Alcohol Intake: current Alcohol Intake frequency: a few times a week Drug use: Rarely Substance use type: does not use and marijuana Adopted: No Caregiver/Support person: No Foster care: No Household members: significant other Housing: house Number of Children: 1 number of grandchildren: 0 Communication Needs: None Education Level: college Do you need help understanding health information?: Never current occupation: none Pets and animals: Yes (7) Pets and animals: cat(s) and dog(s) Sexually active: Yes Do you think of yourself as: straight/heterosexual Current gender identity: female What is your relationship status?: living with partner How often do you talk on the phone with friends or family?: once per week How often do you get together with friends or relatives?: twice per week Do you belong to any clubs or organized social groups?: no Panel score (0-1 are the most socially isolated patients): 2 Duration: < 15 minutes/day Frequency: 1-2 times per week Aida/Sabianism: Alevism Special aida needs: No Seatbelt use: always Helmet use: Yes Drive intox or ride w/intox 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
== END 2024-07-23 14:31 | disposition home or self-care (01) ==
PROVIDERS: Emergency Provider Registered Nurse Emergency; PCP Nurse Practitioner Family
DX: K81.0 Acute cholecystitis (principal)
CPT/HCPCS: 99282

== ENCOUNTER 2024-07-25 06:13 | Day surgery (SDC) | payer MEDICAID, SELFPAY ==
[2024-07-25] VITALS (37 sets, daily range): BP systolic 109–158; BP diastolic 47–102; PULSE 55–79; RESP 6–20; TEMP 36.3–36.5; O2SAT 96–100; BMI 24.0
[2024-07-25] MEDS: Lactated Ringers 1,000 ML 80 ML IV (08:32)
[2024-07-25] MEDS: Indocyanine green 25 MG VIAL 5 MG IVP (08:34)
--- NOTE | 2024-07-25 09:36 | NUR.NOTE ---
0850: Pt. sitting up on stretcher. Asaf left to let dogs out. Pt. denies concerns. States she feels well and just wants to rest until time for surgery. Pt. declined extra blankets at this time. HOB lowered, call maier within reach. Pt. instructed to call nurse if she needed anything or she has concerns. 0930: Pt. lying on L side on stretcher, eyes closed, RR 15, call maier within reach. Nursing Note:
--- NOTE | 2024-07-25 10:41 | ANES.PREOP_ITS ---
General Info Date of Service Date Performed: 07/25/24 Height: 5 ft 7 in Weight: 69.8 kg Body Mass Index (BMI): 24.0 Surgical Procedure: Operation Date: 07/25/24 09:55 Proposed Procedure Side Surgeon p Cholecystectomy Laparoscopic Luis Babb MD Meds Allergies and Home Medications Allergies Allergy/AdvReac Type Severity Reaction Status Date / Time adhesive AdvReac Severe blisters Verified 07/25/24 06:25 Home Medication ?Medication ?Instructions ?Recorded duloxetine 60 mg capsule,delayed 60 mg PO DAILY #90 caps 05/24/24 release eletriptan 40 mg tablet (Relpax) 40 mg PO ONCE #30 tabs 05/24/24 multivitamin 1 tab PO DAILY 07/06/24 conjugated estrogens 0.3 mg tablet 0.3 mg PO DAILY 07/24/24 (Premarin) progesterone micronized 100 mg 100 mg PO QAM 07/24/24 capsule Current Visit Medications: Current Medications Generic Name Dose Route Start Last Admin Trade Name Freq PRN Reason Stop Dose Admin Ringer's Solution 1,000 mls @ 80 mls/hr 07/25/24 06:00 07/25/24 08:32 IV 07/25/24 23:59 80 mls/hr INFUSION RICCARDO Administration IV Miscellaneous Supplies 1 each 07/25/24 06:00 Iv Access IV 07/25/24 23:59 DIRECTED RICCARDO Indocyanine Green 5 mg 07/25/24 06:00 07/25/24 08:34 Indocyanine Green 25 Mg Vial IVP 07/25/24 23:59 5 mg DIRECTED RICCARDO Administration Sodium Chloride 0 ml 07/25/24 06:00 Normal Saline Flush 10 Ml Syr IV 07/25/24 23:59 PRN PRN Sodium Chloride 0 ml 07/25/24 06:00 Normal Saline 10 Ml Vial IJ 07/25/24 23:59 DIRECTED PRN Sterile Water 0 ml 07/25/24 06:00 Water,Injection,Sterile 10 Ml Vial IJ 07/25/24 23:59 DIRECTED PRN PFSH Active Problems Active Problems: Problem Status Onset Code Liver cyst Acute K76.89 Acute cholecystitis Acute K81.0 Biliary pain Acute K80.50 Medical History Medical History Weight loss, abnormal Migraine Anxiety Surgical History Surgical History History of colonoscopy (~06/2024) Hx of section Tobacco Smoking/Tobacco Use Status: Former Tobacco Use Passive smoking exposure: No Alcohol Alcohol Intake: current Alcohol intake frequency: a few times a week Alcohol type: wine Substance Use Substance use: Rarely Substance use type: does not use and marijuana Details: alcohol: t-4, half bottle. Marijuana: months, edible Vital Signs and Lab Results Vital Signs Most Recent Vital Signs in EMR: Most Recent Vital Signs Temp Pulse Resp BP Pulse Ox 36.5 C 79 16 109/72 98 07/25/24 06:28 07/25/24 06:28 07/25/24 06:28 07/25/24 06:28 07/25/24 06:28 Point of Care Results Point of Care Results: POC- Test(urine) Negative 07/25/24 06:50 Lab Results Blood Type / Crossmatch: No Data to Display Complete Blood Count: White Blood Count 6.69 10^3/uL (4.4-10.8) 07/22/24 18:57 Red Blood Count 3.99 10^6/uL (3.93-5.22) 07/22/24 18:57 Hemoglobin 12.2 g/dL (11.2-15.7) 07/22/24 18:57 Hematocrit 37.6 % (36.0-46.0) 07/22/24 18:57 Platelet Count 263 10^3/uL (130-400) 07/22/24 18:57 Complete Metabolic Panel: Sodium 141 mmol/L (136-145) 07/22/24 18:57 Potassium 3.5 mmol/L (3.5-5.1) 07/22/24 18:57 Chloride 105 mmol/L (98-107) 07/22/24 18:57 Carbon Dioxide 28.1 mmol/L (21.0-32.0) 07/22/24 18:57 BUN 8 mg/dL (7-18) 07/22/24 18:57 Creatinine 0.8 mg/dL (0.55-1.02) 07/22/24 18:57 Est GFR (CKD-EPI 2020) 88.05 (mL/min/1.73m2) 07/22/24 18:57 Calcium 9.7 mg/dL (8.5-10.1) 07/22/24 18:57 Albumin 3.9 g/dL (3.4-5.0) 07/22/24 18:57 Glucose 124 mg/dL (74-106) H 07/22/24 18:57 Liver Function Panel: Alanine Aminotransferase (ALT/SGPT) 22 U/L (14-59) 07/22/24 18: 57 Aspartate Amino Transf (AST/SGOT) 18 U/L (15-37) 07/22/24 18:57 Coagulation Panel: No Data to Display Cardiac Panel: Troponin I 5 ng/L (<or=51) 07/22/24 Arterial Blood Gas: No Data to Display Venous Blood Gas: No Data to Display Pancreas Panel: Lipase 42 U/L (<78) 07/22/24 18:57 Thyroid Panel: No Data to Display Infectious Disease: No Data to Display Blood Cultures: No Data to Display Toxicology Panel: No Data to Display Panel: No Data to Display Anesthesia Assessment and Plan Anesthesia History Personal History: No History of Anesthesia Complications Family History: No Family History of Anesthesia Complications Exercise Tolerance Exercise Tolerance: Metabolic Equivalents>4 Pertinent Negatives Pertinent Negatives: No Symptoms of GERD Cardiac & Pulmonary Exam Cardiac Exam: Normal S1/S2 Heart Sounds Pulmonary Exam: Clear Bilateral Breath Sounds Implantable Cardiac Device Does patient have a Pacemaker or an ICD?: No Airway Exam Known Difficult Airway: No Mallampati Class: 2 Mouth Opening: Normal (> 3cm) Thyromental Distance: Greater than 3 cm Neck Range of Motion: Full ROM Neck Circumference: Normal Teeth Condition: Normal Dentition ASA Classification ASA Score: ASA 2 Emergency Case?: No NPO Status NPO Status: NPO Clears >2 hours, Solids >8 hours Status Status: Negative HCG Anesthesia Plan Resuscitation Status: Full Code Anesthesia Technique: General Anesthesia Airway Planned: Endotracheal Tube Pain Management: Surgeon and patient request nerve block Monitors Used: Standard Monitors
[2024-07-25] MEDS: ceFAZolin 2 GM/50 ML BAG 50 GM (11:12)
--- NOTE | 2024-07-25 11:49 | ANES.NERVE_ITS ---
Nerve Block Single Injection Procedure Date and Time Date Performed: 07/25/24 Procedure Start: : Location Where Procedure Performed Procedure Location: Operating Room Procedure Stop: : Reason Performed: Postoperative Analgesia Requesting Provider: Luis Babb Timeout Performed Timeout Performed: Yes Monitoring Used ECG, Blood Pressure, SpO2 and See EMR for corresponding vital signs Sterility Sterility: Hand Hygiene, Surgical Cap, Surgical Mask, Sterile Gloves and Chlor hexidine Sedation Given During Procedure Sedation Given (Indicate Dose Given): No Sedation given Patient Mental Status Patient Mental Status: Performed under general anesthesia Nerve Block 1st Nerve Block: Laterality: Bilateral Block Type: TAP Bilateral Ultrasound Image Saved?: Yes Needle / Catheter Used: 100mm SonoPlex II Local Anesthetic Bolus (Indicate Dose Given): Lidocaine used for local infiltration of skin, Injected in 3-5ml increments after negative blood aspiration, Half of Total block solution given into each side, Bupivacaine 0.25% Dose:: 40ml and Exparel Dose:: 20ml Additives (Indicate Dose Given): None Ultrasound: Sterile probe cover and gel used Nerve Stimulator: Not Used Paresthesia: None Procedure Tolerated: No Complications and Patient tolerated well Procedure Outcome: Successful Performed By: Jermaine Bob
--- NOTE | 2024-07-25 12:40 | GB_PTH ---
PATIENT: Xiomara Colmenares LOC: [facility] U#:[id number] AGE/SX: 54/F ROOM: RE07/25/[address]: Luis Babb : 1970 BED: DIS: 07/25/2024 SPEC #: [id number] RECD: 07/25/24 13:07 STATUS: RAYNE REQ #: [id number] ARTURO: 07/25/24 12:[address]: Luis Babb DEPT: Surgical Specimen RECD BY: Connie Britton ENTERED: 07/25/24 13:08 SP TYPE: GB OTHR DR: Roxana Waggoner APRN Tissues: 1 - GALLBLADDER Procedures: GROSS AND MICRO LEVEL 3 Comments: [id number]
[2024-07-25] MEDS: Bupivacaine 0.25% Pres-Free 30 ML VIAL (12:46)
[2024-07-25] MEDS: ACETAMINOPHEN 1,000 MG/100 ML BAG 1000 MG (13:11)
[2024-07-25] MEDS: HYDROmorphone 2 MG/ML SYR IVP ×2 (13:13→13:44)
--- NOTE | 2024-07-25 14:04 | W.ANESPOSTOP ---
Postoperative Evaluation Date, Time and Location Date Performed: 07/25/24 Time Performed: 14:04 Patient Location: PACU Vital Signs Most Recent Imported Vital Signs: Most Recent Vital Signs Temp Pulse Resp BP Pulse Ox 36.3 C L 58 L 13 154/66 H 100 07/25/24 13:56 07/25/24 14:01 07/25/24 14:01 07/25/24 14:01 07/25/24 14:00 Pain Score Most Recent Pain Score: Most Recent Pain Score Pain Level 6 07/25/24 13:56 Assessment Mental Status: Awake (Alert & Oriented to Patient Baseline) Airway and Respiratory Function: Patent airway with normal (patient baseline) respiratory exam Cardiovascular Function: Hemodynamically Stable Hydration Status: Adequately Hydrated Nausea & Vomiting: No Nausea or Vomiting Pain: Pain is tolerable per patient Peripheral Nerve Block: Regional nerve block not resolved at time of post operative discharge
--- NOTE | 2024-07-25 14:08 | W.PM.DSUDISC ---
Date of service: 07/25/24 Discharge Plan Disposition Patient Disposition: Home Condition: Stable Discharge Details Reason For Visit: cholecystitis Attending Provider: Luis Babb Primary Care Provider: Roxana Waggoner Home Meds and New Rx's Prescriptions: New acetaminophen [Tylenol Extra Strength] 500 mg tablet 500 mg PO Q4H Qty: 30 0RF ibuprofen 600 mg tablet 600 mg PO QID Qty: 30 0RF tramadol 50 mg tablet 50 mg PO Q4H PRNQty: 14 0RF Continued duloxetine 60 mg capsule,delayed release(DR/EC) 60 mg PO DAILY Qty: 90 3RF eletriptan [Relpax] 40 mg tablet 40 mg PO ONCE Qty: 30 1RF Premarin 0.3 mg tablet 0.3 mg PO DAILY Rx Instructions: cyclically progesterone micronized 100 mg capsule 100 mg PO QAM Rx Instructions: off 7 days; repeat cycle multivitamin Tablet 1 tab PO DAILY Discharge Instructions Instructions: Cholecystectomy, Laparoscopic Surgery Additional Instructions: No heavy lifting greater than 15 lbs for 4 weeks from date of surgery. Ok to shower 24 hours after procedure. Clean incision sites gently with regular soap and water. Apply band-aids or gauze if desired. Avoid fatty and greasy food for next 4 weeks. Follow up with office in 2 weeks. Stand Alone Forms: Anesthesia Discharge Inst., Anes.Nerve Block Instructions, Oneil Mazariegos (DSU) Activity:: Activity as Tolerated Remove Dressings/Wound Care:: 24 hours Shower/Bathe:: 24 hours Diet:: Low fat Discharge Orders Discharge Orders: Discharge Order (Routine); Ordered 07/25/24 Ordered By: Luis Babb DS: Diagnosis Discharge Diagnosis (1) Acute cholecystitis: Status: Acute
--- NOTE | 2024-07-25 14:17 | W.PM.OP ---
Operative Note Operative Note PRE-OP DIAGNOSIS: cholecystitis POST-OP DIAGNOSIS: same SURGEON: Luis Babb DELIVERY AGENT: Sarah Rudolph Refer to Anesthesia Record ESTIMATED BLOOD LOSS: 10 PATHOLOGY: other (Gallbladder) COMPLICATIONS: None Patient was transported to: PACU Patient's condition: stable Indications: Patient is a 54-year-old female, presented to clinic having concern for chronic cholecystitis. She was planned for laparoscopic cholecystectomy Findings: Patient undergoing uncomplicated laparoscopic cholecystectomy today. Procedure Description: Patient was taken the operating room. She underwent general anesthesia, the abdomen was prepped and draped. A timeout was completed. A Veress needle entry was performed on the right mid abdomen, lateral to the rectus sheath, and just beneath the costal margin. A 5 mm trocar was inserted after the abdomen was insufflated to 14 cc of water. A 10 mm port was placed in the periumbilical position, 5 mm port was placed at the epigastrium at the level of the liver, a 5 mm port was placed on the right mid abdomen lateral to the rectus sheath, and slightly inferior to the umbilicus. Patient's bed was airplane to the left she was put in a reverse Trendelenburg position. The abdomen was examined, of the viscera was quite nicely decompressed, the liver was unremarkable in color and contour. The gallbladder was distended, mildly edematous, with a whitish mildly thickened wall. There were some thin omental attachments to the gallbladder, these were taken down with sharp scissor dissection and electrocautery. The gallbladder was exposed at the infundibulum, it was grasped laterally and inferiorly exposing the Calot's triangle. The peritoneum at the base of the infundibulum was incised medially and laterally. The cystic duct and cystic artery identified and circumferentially dissected. Fibrofatty tissue behind this area was dissected as well exposing the cystic plate. This dissection provide a good view of the callus triangles was a critical view of safety. The cystic duct was doubly clipped proximally, 1 clip distally was transected. The cystic artery was doubly clipped distally 1 clip proximally was transected as well. The gallbladder was then taken off the gallbladder fossa. Hemostasis was obtained of the fossa electrocautery. Clips inside of dissection were inspected, these were appropriately placed, hemostatic, occluding the correct structures. The gallbladder was placed in an endoscopic retrieval pouch, it was removed from the abdomen. The 10 mm port site to the umbilicus was closed with interrupted #1 Vicryl suture placed using a suture passer. Gas was allowed to desufflate from the abdomen, all incision sites were closed with 3-0 Monocryl. Sterile dressings were applied. Patient is tolerated the procedure well, she was transition to the recovery unit, she remains in stable condition. Date of Procedure: 07/25/24
[2024-07-25] MEDS: traMADol 50 MG TAB PO (14:36)
== END 2024-07-25 15:45 | disposition home or self-care (01) ==
PROVIDERS: PCP Nurse Practitioner Family; Visit Provider Surgery
PROC: 0FT44ZZ Resection of Gallbladder, Percutaneous Endoscopic Approach (ICD-10-PCS; CPT 47562; principal; 2024-07-25 09:45)
DX: K80.10 Calculus of gallbladder with chronic cholecystitis without obstruction (principal); D36.0 Benign neoplasm of lymph nodes
CPT/HCPCS: 47562; 64488; 88304; J0131; J0665; J0666; J0690; J1100; J1171; J1885; J2003; J2371; J2405; J2704

== ENCOUNTER 2024-09-17 00:13 | Outpatient (CLI) | payer MEDICAID, SELFPAY ==
--- NOTE | 2024-09-17 07:59 | DI.MAMMO_ITS ---
Exam(s) MG MAMMO SCREENING 60 MIN DUR EXAM: MG MAMMO SCREENING 60 MIN DUR CLINICAL HISTORY: breast cancer screening,IMPLANTS,Z12.39 TECHNIQUE: Bilateral full field digital CC and MLO mammographic images were obtained with 3D tomosynthesis and utilizing computer aided detection (CAD). COMPARISON: Comparison is made with prior examinations. FINDINGS: Masses/Architectural Distortion: No suspicious masses or areas of architectural distortion are present. The patient has bilateral breast implants which appear intact. Microcalcifications: No suspicious pleomorphic-type are seen. Skin Thickening/Nipple Retraction: None. IMPRESSION: 1. No significant interval change with no specific features of malignancy noted. 2. Unless there is more urgent need, screening mammography is recommended, as per [place] [employer] guidelines. BI-RADS Category 1 - Negative Breast Density - Category C - The breast are heterogeneously dense, which may obscure small masses. Breast density Category C or D implies that the patient has dense breast tissue. Dense breast tissue can make it harder to find cancer on a mammogram. Dense breast tissue is also associated with an increased risk of breast cancer. This information about the result of the mammogram report was provided to the patient to raise their awareness. Use this report when you speak with the patient about their risks for breast cancer, which includes their family history. At that time, you may recommend additional screening tests (Ultrasound or MRI) as these tests may add significant information. A negative radiographic report should not delay biopsy if a dominant or clinically suspicious mass is present. Up to ten percent of cancers are not identified on mammography. A negative report may reinforce clinical impression. Adenosis and dense breasts may obscure an underlying neoplasm. False positive reports average 6 to 10%. Patient will receive a letter notifying them of these results.
== END 2024-09-17 00:33 ==
LOC: DI 00:13
PROVIDERS: PCP Nurse Practitioner Family; Visit Provider Nurse Practitioner Family
DX: Z12.31 Encounter for screening mammogram for malignant neoplasm of breast (principal); Z98.82 Breast implant status
CPT/HCPCS: 77063; 77067